=== PATIENT | female | born 1935 | race Caucasian/White ===

== ENCOUNTER → 2016-02-24 | Outpatient (CLI) | payer OTHER, BC ==
[~2016-02-24] VITALS: Ht 149.9 cm; Wt 67.8 kg
[~2016-02-24] MED LIST: AMARYL4 MG PO; AMBIEN 5 MG TABL5 M1 PO; ANTIVERT25 MG PO; ASPIR 8181 MG PO; CARVEDILOL25 MG PO; FLONASE 0.05%50 MCG NASAL; IMDUR 30 MG TAB30 M1 PO; JANUVIA100 MG PO; LASIX 40 MG TAB40 M2 PO; LIPITOR40 MG PO; LOVAZA1000 MG PO; MEDROL2 MG PO; MEDROLDOSEPACK PO; NEURONTIN300 MG PO; NEXIUM40 MG PO; NITROSTAT0.4 M1 SL; PLAVIX 75 MG TA75 MG PO; SINGULAIR 10 MG10 M1 PO; TRICOR145 MG PO; ULTRAM 50MG TAB50 MG PO; VALIUM5 MG PO; VENTOLIN HFA 1818 GM INH; VOLTAREN GEL 1100 G2 TOP; WELCHOL 625 MG625 MG PO
--- NOTE | ~2016-02-24 | HPC ---
[facility] [place] [address] PAIN MANAGEMENT CONSULTATION Name: JULIANA MCKINLEY Room #: [id number] Admission: 02/24/16 Attend Phys: Rohini Johnson MD Discharge: Date of : 33 Report #: [id number] THIS REPORT FOR: //name// CC: LEE ANN Johnson DATE OF SERVICE: 02/24/2016 PRIMARY CARE PHYSICIAN: Lee Ann Arce M.D. CHIEF COMPLAINT: Back pain. HISTORY OF PRESENT ILLNESS: The patient is an 80-year-old female who has been referred to the pain clinic for evaluation of back pain. She noted onset of her pain in January. It involves the low back area. There is no radiation down into her leg. She has had sciatica pain in the past. She states that this is different from that pain and discomfort. She notes that the pain is worse with activities of daily living. Bending, moving and rotation of her lumbar spine exacerbate the pain and discomfort. Her daughter states that she has not been eating as well because of this pain problem. She describes it as aching. She rates it as a 2/10 today with minimal amounts of movement. She has not had back surgery. She has not had injections in her back. She denies any trauma. The patient has been treated for unstable angina and has been seen by her stake setter. She does not feel that this discomfort has anything to do with any cardiac symptomatology. ALLERGIES: IODINE ORAL and IV cause rash and itch. CODEINE hallucinations. CRESTOR - kidney infections. ZETIA edema and rash. MEDICATIONS: Tramadol 50 mg 1-2 p.o. q. 4 hours p.r.n. for pain, Ambien 10 mg orally once a day at bedtime, meclizine 25 mg orally 3 times a day for dizziness p.r.n., diazepam 5 mg 1/2 to 1 tablet 4 times a day p.r.n. vertigo, albuterol 2 puffs 4 times a day as needed, Flonase spray intranasally, diclofenac topical applied to the joint area 4 times a day, Singulair 10 mg orally, Januvia 100 mg, aspirin 81 mg daily, isosorbide 30 mg in the morning, Plavix 75 mg daily, Lovaza 1000 mg capsule, gabapentin 300 mg t.i.d., Nexium 40 mg, Keflex 500 mg b.i.d. x 7 days, Lipitor 80 mg at bedtime, Tricor 145 mg, Welchol 65 mg daily, Coreg 25 mg b.i.d., Lasix 40 mg 2 tablets in the morning 1 at noon, Amaryl 40 mg b.i.d. and nitroglycerine 0.4 mg sublingually. [place] has been continued, was taken q.6 hours. PAST MEDICAL HISTORY: 1. Cardiac cath. 2. Vein graft to the first obtuse [place] [address] PAIN MANAGEMENT CONSULTATION Name: JULIANA MCKINLEY Room #: REG CL Matilde#: [id number] Admission: 02/24/16 Attend Phys: Rohini Johnson MD Discharge: Date of : 33 Report #: [id number] 3. History of coronary artery bypass graft. 4. Ischemic cardiomyopathy. 5. BI-V ICD generator change. 6. Myocardial infarct in 2003. 7. V-fib arrest 04/01/2003. 8. Congestive heart failure. 9. Hypertension. 10. Diabetes type 2. 11. Hyperlipidemia. 12. Left bundle branch block. PAST SURGICAL HISTORY: ICD placement 04/08/2013, generator change 12/15/2008 and cardiac cath 03/01. FAMILY HISTORY: Two sisters had CABGs, they are ; one killed in a car wreck, the other from a stroke. SOCIAL HISTORY: Never smoked cigarettes. Denies use of tobacco and alcohol. Denies use of illicit drugs. She is retired. 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 REVIEW OF SYSTEMS: GENERAL: Shows reasonably good health, decreased appetite. CARDIOVASCULAR: Heart trouble. GASTROINTESTINAL: Loss of appetite and constipation. MUSCULOSKELETAL: Generally good. ENDOCRINE: Noninsulin dependent diabetes. LABORATORY DATA: X-ray of the cervical spine dated 01/23/2016 reveals C1 through C7 are visualized in normal anatomical alignment. There is no evidence of fracture, dislocation or subluxation. Soft tissue are normal. Joint spaces noted at C5/-C6 and C6-C7 with small anterior osteophyte formation. Left C5-C6 neuroforaminal narrowing noted. Lumbar exam dated 02/14/2016 reveals left convexity of the lumbar scoliosis centered at L2-L3. Grade 1 anterolisthesis of L5 on S1 with bilateral chronic L5 pars defect. No evidence of compression fracture. Multilevel lumbar spondylosis. PHYSICAL EXAMINATION: VITAL SIGNS: Blood pressure is 133/71, pulse 74, respiratory rate is 18 and room air saturation is 90%. MUSCULOSKELETAL: The patient has pain and discomfort in the lower portion of her back. She sits in a chair in a guarded fashion. She walks slow and deliberate. She moves from her chair to the examination table slowly. She complains of pain and discomfort across the low back area in the area of the L5-S1 level. Palpation in the right posterior superior iliac spine and right and left posterior superior iliac spine reproduced the patient's pain and discomfort. She phonates and breathes deeply with palpation of these two areas. [facility] [address] [place] [address] PAIN MANAGEMENT CONSULTATION Name: JULIANA MKCINLEY Room #: REG [facility]#: [id number] Admission: 02/24/16 Attend Phys: Rohini Johnson MD Discharge: Date of : 33 Report #: [id number] She denies any lumbar radicular pain down into her legs similar to sciatica which she has experienced in the past. IMPRESSION: 1. Myofascial pain in the left and right posterior superior iliac spines near the left and right gluteus nick. 2. Unstable angina. 3. Coronary artery disease status post coronary artery bypass graft in 1986. 4. Prior cardiac arrest status post implantable cardioverter/defibrillator implantation. 5. Hypertension. 6. Diabetes. 7. Ischemic cardiomyopathy. RECOMMENDATIONS: We discussed treatment options with the patient and her daughter. She is on Plavix at this point. We will take a conservative approach. We will try a Medrol Dosepak. She would take the medications 6, 5, 4, 3, 2 and 1 as prescribed. Possibility of a trigger point injection to the affected area has been discussed with the patient and her daughter. Given that she has recently had a stent placement, we are not sure whether or not her stake setter will think it a good idea to stop her blood thinning medication. The patient does not appear to be a candidate for nonsteroidal anti-inflammatory medications. She states that her renal function has been questioned by one of her doctors. Hopefully, the patient continues to improve. She will follow up as needed. The patient may benefit from additional physical therapy. We would like to thank you for letting us participate in her care. We hope she continues to improve. <ELECTRONICALLY SIGNED> By: Rohini Johnson MD 03/27/16 [id number] Rohini Johnson MD /nt
[2016-02-24 09:39] VITALS: BP 133/71
== END ==
LOC: PAIN 07:13
DX: M79.1 Myalgia (principal); I25.10 Atherosclerotic heart disease of native coronary artery without angina pectoris; Z95.1 Presence of aortocoronary bypass graft; I10 Essential (primary) hypertension; E11.9 Type 2 diabetes mellitus without complications; I25.5 Ischemic cardiomyopathy

== ENCOUNTER → 2016-07-13 | Outpatient (CLI) | payer OTHER, BC ==
[~2016-07-13] VITALS: Ht 149.9 cm; Wt 67.1 kg
--- NOTE | ~2016-07-13 | HPC ---
[facility] [address] [address] [place] [address] PAIN MANAGEMENT CONSULTATION Name: JULIANA MCKINLEY Room #: REG [facility]#: [id number] Admission: 07/13/16 Attend Phys: Rohini Johnson MD Discharge: Date of : 33 Report #: [id number] THIS REPORT FOR: //name// CC: LEE ANN Johnson The patient was seen on 07/13/[address] Liam Johnson. PRIMARY CARE PHYSICAN: Lee Ann Arce M.D. FOLLOWUP COMPLAINT: I stopped taking the Plavix. FOLLOWUP HISTORY: The patient is an 81-year-old female who has been seen in the pain clinic because of myofascial pain in the low back area. She has undergone trigger point injections in the past and gleaned benefits from this. She returns today indicating that she has stopped her Plavix and would like to proceed with a trigger point injection. She continues to have pain and discomfort in the left low back area. This area is quite sensitive to palpation. Movement exacerbates her discomfort. She has difficulty with getting up and down because of the pain. PHYSICAL EXAMINATION: Blood pressure is 138/55, pulse 65, respiratory rate 16, room air saturation 94%. Height 4 feet 11 inches, weight 67 kilograms. BMI is 29. The patient has pain and discomfort in the low back area with pain that radiates somewhat into the back and the buttocks area. IMPRESSION: 1. Myofascial pain involving the left low back area, which has improved with trigger point injections in the past. 2. A spider filter in the right obtuse marginal graft, cardiac history, history of coronary artery bypass grafting, ischemic cardiomyopathy. 3. BIV ICD. 4. Myocardial infarct 2003. 5. V-Fib arrest 2003. 6. Congestive heart failure. 7. Hypertension. 8. Diabetes type 2. 9. Hyperlipidemia. 10. Left bundle branch block. RECOMMENDATIONS: Again, we discussed with the patient and her daughter, the risk and benefits of the procedure. They include increased muscle soreness, bleeding, worsening of pain/no improvement in the pain, and she elects to proceed. PROCEDURE NOTE: The patient was placed in the sitting position. Her back was [facility] [address] [place] [address] PAIN MANAGEMENT CONSULTATION Name: ARLENJULIANA Room #: [employer]#: [id number] Admission: 07/13/16 Attend Phys: Rohini Johnson MD Discharge: Date of : 33 Report #: [id number] sterilely prepped with an alcohol wipe. A 25-gauge needle was then advanced into the area of the latissimus dorsi near the posterior superior iliac spine area. A 25-gauge needle was then advanced into the area of discomfort. The patient states that this reproduced her discomfort. A total of 10 mL of 0.5% bupivacaine and 80 mg Depo-Medrol was injected. The patient tolerated the procedure well. There were no complications. We would like to thank you for letting us participate in her care. We hope she continues to improve. Her pain decreased to 0 at the time of discharge. She will monitor her blood sugars. By: [id number] Rohini Johnson MD /nt
[2016-07-13 08:23] VITALS: BP 138/55
== END | disposition home or self-care (01) ==
LOC: PAIN 05:39
DX: M79.1 Myalgia (principal); I25.5 Ischemic cardiomyopathy; I10 Essential (primary) hypertension; I50.9 Heart failure, unspecified; E11.9 Type 2 diabetes mellitus without complications; I25.2 Old myocardial infarction; E78.5 Hyperlipidemia, unspecified; I46.2 Cardiac arrest due to underlying cardiac condition; Z95.810 Presence of automatic (implantable) cardiac defibrillator; Z95.1 Presence of aortocoronary bypass graft

== ENCOUNTER → 2016-08-31 | Outpatient (CLI) | payer OTHER, BC ==
[~2016-08-31] VITALS: Ht 149.9 cm; Wt 68.0 kg
[~2016-08-31] MED LIST changes: +AZITHROMYCIN 2250 MG PO; +POTASSIUM20 PO
[2016-08-31 10:55] LABS: HEMATOCRIT 36.2 % (37.0-47.0); HEMOGLOBIN 12.2 gm/dL (12.0-15.0); MCH 29.1 pg (26.0-34.0); MCHC 33.6 g/dL (28.0-37.0); MCV 86.7 fL (80.0-100.0); RBC 4.18 mil/uL (4.20-5.00)
[2016-08-31 11:04] LABS: CALCIUM 9.4 mg/dL (8.5-10.1); CREATININE 0.8 mg/dL (0.6-1.0); POTASSIUM 3.4 mmol/L (3.5-5.1)
[2016-08-31 11:09] VITALS: BP 118/58
[2016-08-31 11:15] LABS: APTT 23.6 Seconds (24.5-32.8); INR 1.2; PROTIME 12.1 Seconds (9.3-11.4)
== END | disposition home or self-care (01) ==
LOC: CATH 06:56
PROVIDERS: Internal Medicine Cardiovascular Disease
DX: Z45.010 Encounter for checking and testing of cardiac pacemaker pulse generator [battery] (principal); I11.0 Hypertensive heart disease with heart failure; I50.9 Heart failure, unspecified; E11.9 Type 2 diabetes mellitus without complications; I25.10 Atherosclerotic heart disease of native coronary artery without angina pectoris; E78.5 Hyperlipidemia, unspecified; M19.90 Unspecified osteoarthritis, unspecified site; I25.2 Old myocardial infarction; F41.8 Other specified anxiety disorders; Z98.890 Other specified postprocedural states; Z79.82 Long term (current) use of aspirin; Z79.899 Other long term (current) drug therapy; Z88.8 Allergy status to other drugs, medicaments and biological substances
CPT/HCPCS: 62110; 62900; 70005

== ENCOUNTER → 2017-06-25 | Outpatient (CLI) | payer OTHER, BC | LOC: CV 06-19 09:20 → NUC 07:37 → CV 09:57 → NUC 10:01 | DX: I25.10 Atherosclerotic heart disease of native coronary artery without angina pectoris (principal); E78.5 Hyperlipidemia, unspecified; I10 Essential (primary) hypertension; E11.9 Type 2 diabetes mellitus without complications ==

== ENCOUNTER → 2018-07-16 | Outpatient (CLI) | payer OTHER, BC ==
[~2018-07-16] VITALS: Ht 149.9 cm; Wt 64.0 kg
[~2018-07-16] MED LIST changes: +MUCINEX600 MG PO; +ZYRTEC10 M2 PO
[2018-07-16 13:00] VITALS: BP 154/71
--- NOTE | 2018-07-16 13:18 | NUR ---
Pain Clinic Assessment: 1. History of Osteoarthritis: Left Lower Extremity Right Lower Extremity History of Rheumatoid Arthritis: 2. Height: 4 ft. 11 in. 149.9 cm. Weight: 141.2 lb. oz. 64.048 kg. Patient's BMI: 28.5 3. Vital Signs: BP: 154/71 Pulse: 66 Resp: 16 Temp: 02 Sat: 93 ECG Mon: 4. Pain Intensity: 4-5 5. Fall Risk: Dizziness: N Needs help standing or walking: N Fallen in the last 3 months: N Fall risk comments: 6. Patient on Blood Thinner: Clopidogrel Bisulf(Plavix 7. History of Hypertension: Y 8. Opioid Therapy greater than 6 weeks: N Opiate Contract Signed: 9. Risk Assessment Tool Provided: LOW 10. Functional Assessment Tool: 11. Recreational Drug Use: Never Drug Type: Tobacco Use: Never Smoker Tobacco Type: Amount or Packs/day: How Many Years: Alcohol Use: No Frequency: Quant:
--- NOTE | 2018-07-18 16:10 | HPC ---
[facility] [address] [address] PAIN MANAGEMENT CONSULTATION Name: JULIANA MCKINLEY Room #: REG [facility].#: [id number] Admission: 07/16/18 ������������������ Attend Phys: Rohini Johnson MD Discharge: ������������������ Date of : 33 Report #: [id number] THIS REPORT FOR: //name// CC: LEE ANN YANG MD FAM unknown Rohini Johnson DATE OF SERVICE: 07/16/2018 PRIMARY CARE PHYSICIAN: Lee Ann Yang MD CHIEF COMPLAINT: "I have that same pain that I had in my back that improved for 2 years after the last injection, I would like another shot." HISTORY OF PRESENT ILLNESS: The patient is an 83-year-old female who has been seen in the pain clinic in the past because of myofascial pain in the low back area. She has undergone trigger point injections because of myofascial pain. She has stopped her Plavix with the desire to undergo another injection. Overall, the pain improvement was about 2 years in duration. She has returned today with the hopes of undergoing another trigger point injection to help decrease her pain. Describes as an aching discomfort, rates as a 4-5. Notes it is worse in the evening. Walking is problematic. Finds that use of medications can be somewhat helpful. Sitting is less problematic as well. She denies any new trauma. No real change in bowel or bladder function because of this. ALLERGIES: IODINE ORAL AND IV CAUSE RASH AND ITCHING, CODEINE CAUSES HALLUCINATIONS, CRESTOR, KIDNEY INFECTIONS, ZETIA EDEMA AND RASH. CURRENT MEDICATIONS: Mucinex 600 mg q.12 hours, Zyrtec 10 mg, Lovaza 1000 mg, takes 3000 mg tablets b.i.d., TriCor 145 mg, Ambien 5 mg, Singulair 10 mg, Neurontin 300 mg, Amaryl 4 mg b.i.d., Coreg 25 mg b.i.d., Lipitor 40 mg, total of 80 mg daily, Plavix 75 mg, Imdur 30 mg, aspirin 81 mg chewable, Januvia 100 mg, Flonase 0.05% nasal spray, diclofenac gel 1% to upper extremities, Lasix 40 mg. PAIN CLINIC ASSESSMENT AND PQRS: 1. History of osteoarthritis. The patient has left lower extremity as well as right lower extremity pain. 2. Rheumatoid arthritis. The patient is not being treated for rheumatoid arthritis. 3. Height 4 feet 11 inches, weight 141 pounds, BMI is 28.5. 4. Vital signs: Blood pressure 154/71, pulse 66, respiratory rate 16, saturation is 93%. 5. Pain intensity 4-5/10. 6. Fall risk. The patient has not fallen in the last 3 months. 7. Blood thinner. The patient is on Plavix and has stopped [place] [address] PAIN MANAGEMENT CONSULTATION Name: ARLENJULIANAHelena PINEDA [id number] Admission: 07/16/18 ������������������ Attend Phys: Rohini Johnson MD Discharge: ������������������ Date of : 33 Report #: [id number] today with a desire to undergo an injection. 8. Hypertension. The patient is being treated for hypertension. 9. Opiates greater than 6 weeks. The patient is not on an opioid regimen. 10. Risk assessment tool, low for opioid use. 11. Functional assessment tool, 30. 12. Recreational drug use. The patient denies use of recreational drugs. 13. Tobacco: The patient has never smoked. 14. Alcohol: The patient denies use of alcoholic beverages. PHYSICAL EXAMINATION: GENERAL: The patient is a well-developed, well-nourished white female. Appears her stated age. She is alert and oriented x 3. Affect is appropriate. Speech is fluent. She is accompanied by her daughter. HEART: History of atrial fibrillation. ABDOMEN: Nontender. EXTREMITIES: Upper extremity muscle strength is judged to be 4/5 for the upper group muscles in the upper extremity. The patient has pain and discomfort in the low back area near the posterior superior iliac spine area on the right. PROCEDURE: The patient was assisted in getting on the examination table. A chair was placed under her feet. She was perpendicular to the bed. She leaned forward. Palpation in this area did reproduce her trigger point in the area of the right posterior superior iliac spine area near the gluteus nick and latissimus dorsi. This area was sterilely prepped with a Betadine solution. A 25-gauge needle was then advanced to the area. Aspiration was negative. A dose of Depo-Medrol 80 with 6 mL of 0.5% bupivacaine was injected. Prior to the procedure, we had discussed the possible complication of the procedure, which could include but are not limited to infection, worsening of pain, no improvement in pain, muscle soreness and bleeding. The patient elects to proceed. RECOMMENDATIONS: The patient has been directed to resume use of her Plavix tomorrow. She will call us if she has any concerns. She notes that her pain had decreased to 0 at the time of discharge. We would like to thank you for letting us participate in her care. We hope she continues to improve. ��������������������������������������������� <ELECTRONICALLY SIGNED> ���������������������������������������� By: Rohini Johnson MD ��������������������������������������������� 07/18/18 1610 [id number] MD ROBERT Ceron
== END | disposition home or self-care (01) ==
LOC: PAIN 06:49
DX: M79.18 Myalgia, other site (principal); G89.29 Other chronic pain; I10 Essential (primary) hypertension; Z88.8 Allergy status to other drugs, medicaments and biological substances; Z88.6 Allergy status to analgesic agent; Z79.82 Long term (current) use of aspirin; Z79.899 Other long term (current) drug therapy; Z98.890 Other specified postprocedural states

== ENCOUNTER → 2018-10-15 | Outpatient (CLI) | payer OTHER, BC ==
[~2018-10-15] VITALS: Ht 149.9 cm; Wt 65.3 kg
[~2018-10-15] MED LIST changes: +LISINOPRIL10 MG PO; +TRAMADOL 50 MG50 MG PO
[2018-10-15 12:45] VITALS: BP 145/68
--- NOTE | 2018-10-15 12:58 | NUR ---
Pain Clinic Assessment: 1. History of Osteoarthritis: Left Lower Extremity Right Lower Extremity History of Rheumatoid Arthritis: Not Applicable 2. Height: 4 ft. 11 in. 149.9 cm. Weight: 144.0 lb. oz. 65.318 kg. Patient's BMI: 29.1 3. Vital Signs: BP: 145/68 Pulse: 80 Resp: 16 Temp: 02 Sat: 94 ECG Mon: 4. Pain Intensity: 3 5. Fall Risk: Dizziness: Y Needs help standing or walking: N Fallen in the last 3 months: N Fall risk comments: 6. Patient on Blood Thinner: Clopidogrel Bisulf(Plavix 7. History of Hypertension: Y 8. Opioid Therapy greater than 6 weeks: N Opiate Contract Signed: 9. Risk Assessment Tool Provided: LOW 10. Functional Assessment Tool: 11. Recreational Drug Use: Never Drug Type: Tobacco Use: Never Smoker Tobacco Type: Amount or Packs/day: How Many Years: Alcohol Use: No Frequency: Quant:
== END | disposition home or self-care (01) ==
LOC: PAIN 10-08 10:00
DX: M79.18 Myalgia, other site (principal); Z98.890 Other specified postprocedural states; Z79.899 Other long term (current) drug therapy; Z79.82 Long term (current) use of aspirin; Z91.041 Radiographic dye allergy status; Z88.8 Allergy status to other drugs, medicaments and biological substances

== ENCOUNTER 2018-12-25 08:39 | Day surgery (SDC) | payer OTHER, BC ==
[~2018-12-25] VITALS: Ht 149.9 cm; Wt 62.1 kg
[~2018-12-25 08:39] MED LIST changes: +ADVAIR 250-501 EACH INH; +IRON325 M1 PO; +NITROGLYCERIN0.4 MG SUBLING; +PANTOPRAZOLE SO40 M1 PO; +PROAIR HFA8.5 GM INH
[2018-12-25 09:30] VITALS: BP 109/57
--- NOTE | 2018-12-29 06:17 | O ---
[facility] [place] [address] [place] [address] OPERATIVE REPORT Name: JULIANA MCKINLEY Room #: DEP [facility].#: [id number] Admission: 12/25/18 Attend Phys: Jairo Lovelace MD Discharge: 12/25/18 Date of : 33 Report #: [id number] THIS REPORT FOR: //name// CC: Lee Ann Lovelace DATE OF SERVICE: 12/25/2018 SURGEON: Jairo Lovelace MD PREOPERATIVE DIAGNOSIS: Bilateral nasal lacrimal duct obstruction. POSTOPERATIVE DIAGNOSIS: Bilateral nasal lacrimal duct obstruction. OPERATION PERFORMED: Bilateral endoscopic balloon dacryocystoplasty with silicone intubation. ANESTHESIA: General. COMPLICATIONS: None. INDICATIONS FOR SURGERY: This patient has acquired bilateral nasal lacrimal duct stenosis with chronic tearing and discharge, both eyes. The current procedures are undertaken in order to improve the patient's level of lacrimal outflow and visual clarity. Informed consent was obtained to include but not limited to the potential risks for damage to the eye, loss of vision, bleeding, infection, failure to improve the problem and need for further surgery. DESCRIPTION OF OPERATION: The patient was taken to the operating room, where general anesthesia was administered. The medial canthi were anesthetized with 2% Xylocaine with epinephrine mixed with equal parts of 0.75% Marcaine with Wydase. The lateral lam of the nose were then bilaterally injected with the same anesthetic mixture. The nose was packed with Afrin-soaked cottonoids. The patient was then prepped and draped in the usual sterile fashion. A moist compress was placed on the left eye while attention was turned to the right side. The superior and inferior puncta were then atraumatically dilated with a punctum dilator. A size 0 lacrimal probe was then passed through the superior canalicular system and through the stenosed nasal lacrimal duct. The nasal packing was removed and the endoscope was brought into the field. The inferior turbinate was gently infractured with a Rogers periosteal elevator to allow [facility] [address] [place] [address] OPERATIVE REPORT Name: JULIANA MCKINLEY Room #: DEP [facility].#: [id number] Admission: 12/25/18 Attend Phys: Jairo Lovelace MD Discharge: 12/25/18 Date of : 33 Report #: [id number] visualization of the inferior meatus in the area of the opening of the valve of Hasner in the nose. The probe was found and confirmed to be in the proper location. It was removed and subsequently replaced with a size 1 and a size 2 Mendoza probe, which also had their passage confirmed endoscopically to be in the proper location. A 3 by 15 LacriCatheter was lubricated with a small quantity of ophthalmic antibiotic ointment. The LacriCatheter was then passed through the superior canalicular system and the stenosed nasal lacrimal duct. The LacriCatheter was confirmed to be in the proper location endoscopically intranasally in the inferior meatus. The LacriCatheter was inflated to 9 atmospheres for 90 seconds and deflated. The catheter was then inflated to 9 atmospheres for 60 seconds. The catheter was then withdrawn to the proximal black ring. It was then inflated to 9 atmospheres for 90 seconds. The balloon was then deflated and reinflated to 9 atmospheres for 60 seconds. The balloon was the aspirated and withdrawn to the distal black ring. It was then inflated to 9 atmospheres for 90 seconds. The balloon was deflated and reinflated to 9 atmospheres for 60 seconds. The balloon was then deflated and vigorously aspirated as it was withdrawn through the superior canalicular system. A Crowley tube was then passed through the superior canalicular system and out the dilated duct. The Crowley tube was secured under the inferior turbinate in the inferior meatus with a Crowley hook and retrieved endoscopically. The Crowley tube was then passed through the inferior canalicular system in a similar fashion and was retrieved endoscopically in the nose atraumatically. The Crowley tube was then secured to itself with 3 square throws and then to the lateral wall of the nose with a 5-0 Prolene suture. Attention was then turned to the other side, where the same procedure was performed. Antibiotic steroid drops were then placed in both eyes. A small quantity of ophthalmic antibiotic ointment was placed on the Crowley tube. The patient was then transported to the recovery area with no anesthetic or operative complications being noted. <ELECTRONICALLY SIGNED> By: Jairo Lovelace MD 12/29/18 0617 [id number] Jairo Lovelace MD /nt
== END 2018-12-25 11:45 | disposition home or self-care (01) ==
LOC: OR 08:39 → TBA 08:40 → OR 11:45
DX: H04.553 Acquired stenosis of bilateral nasolacrimal duct (principal); I10 Essential (primary) hypertension; E11.9 Type 2 diabetes mellitus without complications; E78.5 Hyperlipidemia, unspecified; G47.30 Sleep apnea, unspecified; K21.9 Gastro-esophageal reflux disease without esophagitis; M19.90 Unspecified osteoarthritis, unspecified site; Z98.890 Other specified postprocedural states; Z95.0 Presence of cardiac pacemaker; Z98.41 Cataract extraction status, right eye; Z98.42 Cataract extraction status, left eye; D64.9 Anemia, unspecified; Z91.041 Radiographic dye allergy status; Z88.8 Allergy status to other drugs, medicaments and biological substances; Z95.1 Presence of aortocoronary bypass graft; Z79.899 Other long term (current) drug therapy; Z79.82 Long term (current) use of aspirin
CPT/HCPCS: 50010; 50101; 50261; 50386; 50398; 51777; 56528; 62110; 62900; 64037; 70005

== ENCOUNTER → 2021-01-17 | Outpatient (CLI) | payer OTHER, BC | LOC: SJCVC 14:08 | PROVIDERS: ATTEND Internal Medicine Cardiovascular Disease | DX: I44.7 Left bundle-branch block, unspecified (principal); R94.31 Abnormal electrocardiogram [ECG] [EKG]; I25.10 Atherosclerotic heart disease of native coronary artery without angina pectoris; I25.5 Ischemic cardiomyopathy; I10 Essential (primary) hypertension; E11.9 Type 2 diabetes mellitus without complications; J44.9 Chronic obstructive pulmonary disease, unspecified; G47.33 Obstructive sleep apnea (adult) (pediatric); Z99.81 Dependence on supplemental oxygen; Z95.810 Presence of automatic (implantable) cardiac defibrillator; Z99.89 Dependence on other enabling machines and devices; Z88.8 Allergy status to other drugs, medicaments and biological substances; Z79.899 Other long term (current) drug therapy ==